=== PATIENT | female | born 1940 | race Caucasian/White ===

== ENCOUNTER 2017-11-02 09:15 | Emergency (ER) | payer OTHER, MEDICAID ==
[2017-11-02] MEDS: ONDANSETRON 4 MG INJ IV (09:28)
[2017-11-02 10:23] LABS: ADD MAN DIFF? NO
[2017-11-02 10:25] LABS: BASOPHILS % 0.5 % (0.0-2.0); EOSINOPHILS % 0.1 % (0.0-7.0); HEMATOCRIT 38.4 % (37.0-47.0); HEMOGLOBIN 13.4 g/dl (12.0-16.0); LYMPHOCYTES # 1.2 10^3/ul (0.8-2.9); LYMPHOCYTES % 14.8 % (15.0-51.0); MEAN CORPUSCULAR HEMOGLOBIN 28.8 pg (29.0-33.0); MEAN CORPUSCULAR HGB CONC 34.9 g/dl (32.0-37.0); MEAN CORPUSCULAR VOLUME 82.6 fl (82.0-101.0); MEAN PLATELET VOLUME 9.7 fl (7.4-10.4); MONOCYTES % 12.4 % (0.0-11.0); NEUTROPHIL # 5.8 10^3/ul (1.6-7.5); PLATELET COUNT 178 10^3/UL (140-415); RED BLOOD COUNT 4.65 10^6/ul (4.20-5.40); RED CELL DISTRIBUTION WIDTH 12.9 % (11.5-14.5)
[2017-11-02] MEDS: SOD CHLORIDE 0.9% 1,000 ML IV ×2 (10:27→13:47)
[2017-11-02 10:48] LABS: PROTIME 14.4 Sec (11.9-14.9); PT RATIO 1.1
[2017-11-02 10:48] LABS: LACTIC ACID 1.2 mmol/L (0.5-2.0)
[2017-11-02 10:49] LABS: PARTIAL THROMBOPLASTIN TIME 31.2 Sec (25.0-35.0)
[2017-11-02 11:07] LABS: ALANINE AMINOTRANSFERASE 45 IU/L (13-69); ALBUMIN/GLOBULIN RATIO 1.29; ALKALINE PHOSPHATASE 69 IU/L (42-121); AMYLASE 63 U/L (11-123); ANION GAP 16 (8-16); ASPARTATE AMINO TRANSFERASE 47 IU/L (15-46); BILIRUBIN,INDIRECT 0.4 mg/dl (0-1.1); BILIRUBIN,TOTAL 0.4 mg/dl (0.2-1.3); BLOOD UREA NITROGEN 13 mg/dl (7-20); CALCIUM 8.3 mg/dl (8.4-10.2); CARBON DIOXIDE 23 mmol/L (21-31); CHLORIDE 100 mmol/L (97-110); CREATININE 0.73 mg/dl (0.44-1.00); GLUCOSE 131 mg/dl (70-220); LIPASE 66 U/L (23-300); POTASSIUM 3.3 mmol/L (3.5-5.1); SODIUM 136 mmol/L (135-144); TOTAL PROTEIN 7.1 g/dl (6.1-8.1)
[2017-11-02 11:21] LABS: TROPONIN-I < 0.012 ng/ml (0.00-0.12)
[2017-11-02 12:39] LABS: ADD UMIC YES; UR ASCORBIC ACID NEGATIVE (NEGATIVE); UR BILIRUBIN (Dip) NEGATIVE (NEGATIVE); UR BLOOD (Dip) 2+ mg/dL (NEGATIVE); UR CLARITY CLOUDY (CLEAR); UR COLOR YELLOW (YELLOW); UR GLUCOSE (Dip) NEGATIVE (NEGATIVE); UR KETONES (Dip) NEGATIVE (NEGATIVE); UR LEUKOCYTE ESTERASE (Dip) 3+ Leu/ul (NEGATIVE); UR NITRITE (Dip) POSITIVE (NEGATIVE); UR RBC 2 /HPF (0-5); UR SPECIFIC GRAVITY (Dip) 1.002 (1.003-1.030); UR TOTAL PROTEIN (Dip) NEGATIVE (NEGATIVE); UR UROBILINOGEN (Dip) NEGATIVE (NEGATIVE); UR WBC 139 /HPF (0-5)
[2017-11-02] MEDS: KETOROLAC 30 MG INJ IV (13:47)
[2017-11-02] MEDS: CEFTRIAXONE 1 GM/50 ML (PMX) 50 ML IVPB (13:48)
== END 2017-11-02 17:36 | disposition home or self-care (01) ==
LOC: E/R 09:15
DX: G44.209 Tension-type headache, unspecified, not intractable (principal); N30.00 Acute cystitis without hematuria; I10 Essential (primary) hypertension; R40.2252 Coma scale, best verbal response, oriented, at arrival to emergency department; R40.2142 Coma scale, eyes open, spontaneous, at arrival to emergency department; R40.2362 Coma scale, best motor response, obeys commands, at arrival to emergency department; R07.9 Chest pain, unspecified
CPT/HCPCS: 70450; 71045; 80053; 81001; 82150; 83605; 83690; 84484; 85025; 85610; 85730; 87040; 87086; 93005; 96374; 96375; 99285-25

== ENCOUNTER 2018-02-14 13:11 | Emergency (ER) | payer OTHER, MEDICAID ==
[2018-02-14] MEDS: ALBUTEROL 0.083% (NEB) 2.5 MG/3 ML AMP HHN (14:08)
== END 2018-02-14 14:55 | disposition home or self-care (01) ==
LOC: FTE 13:11
DX: R05 Cough (principal); I10 Essential (primary) hypertension
CPT/HCPCS: 71045; 94664; 99283-25

== ENCOUNTER 2018-12-07 17:49 | Emergency (ER) | payer MEDICARE, MEDICAID, OTHER ==
[2018-12-07] MEDS: ACETAMINOPHEN 500 MG TAB PO (20:49)
[2018-12-07] MEDS: DEXAMETHASONE 10 MG/ML 1 ML INJ IM (20:50)
[2018-12-07] MEDS: KETOROLAC 30 MG INJ IM (20:50)
== END 2018-12-07 21:12 | disposition home or self-care (01) ==
LOC: FTE 17:49
DX: M79.621 Pain in right upper arm (principal); I10 Essential (primary) hypertension
CPT/HCPCS: 96372; 99284-25